=== PATIENT | female | born 1970 | race Two or more races ===

== ENCOUNTER 2017-04-20 20:13 | Inpatient (IN) | END 2017-04-26 19:30 | disposition home or self-care (01) | DRG 419 ==

== ENCOUNTER 2018-09-08 03:25 | Inpatient (IN) | payer OTHER, MEDICAID ==
[~2018-09-08] VITALS: Ht 162.6 cm; Wt 68.2 kg
[~2018-09-08 03:25] MED LIST: ACYC400T2 PO; DOXY100T20 PO; HYDR-3601 PO; IBUP-1542 PO; MUPI22OI2 TOP; ONDA4TAB8 PO; RIFA300C3 PO
[2018-09-08 03:35] VITALS: Ht 162.6 cm; Wt 68.2 kg
[2018-09-08] MEDS ORDERED: PIPER-TAZO 3.375 GM IV (PMX) 100 ML IVPB STA (03:37)
[2018-09-08] MEDS ORDERED: SOD CHLORIDE 0.9% 1,000 ML IV STA (03:37)
[2018-09-08] MEDS ORDERED: ONDANSETRON 4 MG INJ IV STA (03:37)
[2018-09-08] MEDS ORDERED: HYDROmorphONE 1 MG/ML SYG IV STA (03:37)
--- NOTE | 2018-09-08 05:39 | ERD ---
ER Documentation Chief Complaint Chief Complaint BIB AMBULANCE C/O R SIDE BREAST PAIN SECONDARY TO CANCER HPI Is a 48 female brought in by mom's complaints erythema and induration on the right flank region from an insect bite. Patient is a breast cancer patient currently on chemo. Complains of body aches as well. Denies fevers chills nausea vomiting. Pain is mild to moderate intensity no exacerbating relieving factors no radiations. ROS All systems reviewed and are negative except as per history of present illness. Medications Home Meds Active Scripts Acyclovir* (Acyclovir*) 400 Mg Tablet, 400 MG PO BID, #14 TAB Prov:ZAHIRA OLEARY MD 04/26/17 Reported Medications Ibuprofen* (Ibuprofen*) 600 Mg Tablet, 600 MG PO TID TAKE 1 TABLET BY MOUTH THREE TIMES A DAY WITH FOOD 09/08/18 Discontinued Scripts Ondansetron Hcl* (Zofran*) 4 Mg Tablet, 4 MG PO Q6H PRN for NAUSEA AND OR VOMITING, #30 TAB Prov:ZAHIRA OLEARY MD 04/26/17 Hydrocodone Bit-Acetaminophen (Hydrocodone Bit-APAP) 5-325MG Tablet, 1 TAB PO Q4H PRN for PAIN LEVEL 6-10, #30 TAB Prov:ZAHIRA OLEARY MD 04/26/17 Allergies Allergies: Coded Allergies: camphor (Unverified Allergy, Unknown, 09/08/18) eucalyptus (Unverified Allergy, Unknown, 09/08/18) menthol (Unverified Allergy, Unknown, 09/08/18) petrolatum,white (Unverified Allergy, Unknown, 09/08/18) turpentine oil (Unverified Allergy, Unknown, 09/08/18) venlafaxine (Unverified Allergy, Unknown, 09/08/18) PMhx/Soc History of Surgery: No Anesthesia Reaction: No Hx Neurological Disorder: No Hx Respiratory Disorders: No Hx Cardiac Disorders: No Hx Psychiatric Problems: Yes (ANXIETY DEPRESSION TAKES NO MEDS) Hx Miscellaneous Medical Probl: Yes (HX SHINGLES) Hx Alcohol Use: Yes (OCCASIONAL) Hx Substance Use: No Hx Tobacco Use: Yes Smoking Status: Never smoker Physical Exam Vitals Vital Signs Date Temp Pulse Resp B/P (MAP) Pulse Ox O2 O2 Flow FiO2 Time Delivery Rate 09/08/18 55 14 130/92 99 Room Air 05:09 (105) 09/08/18 97.9 65 22 147/76 98 03:35 (99) Physical Exam Const: No acute distress Head: Atraumatic Eyes: Normal Conjunctiva ENT: Normal External Ears, Nose and Mouth. Neck: Full range of motion. No meningismus. Resp: Clear to auscultation bilaterally Cardio: Regular rate and rhythm, no murmurs Abd: Soft, non tender, non distended. Normal bowel sounds Skin: 4 x 4 area of erythema is duration the right midaxillary line at ribs 4 and 5. No fluctuance noted. Back: No midline or flank tenderness Ext: No cyanosis, or edema Neur: Awake and alert Psych: Normal Mood and Affect Result Diagram: 09/08/182 09/08/18 0352 Results 24 hrs Laboratory Tests Test 09/08/18 03:52 White Blood Count 11.4 10^3/ul Red Blood Count 3.99 10^6/ul Hemoglobin 12.3 g/dl Hematocrit 38.0 % Mean Corpuscular Volume 95.2 fl Mean Corpuscular Hemoglobin 30.8 pg Mean Corpuscular Hemoglobin Concent 32.4 g/dl Red Cell Distribution Width 16.3 % Platelet Count 336 10^3/UL Mean Platelet Volume 10.3 fl Immature Granulocytes % 0.500 % Neutrophils % 77.8 % Lymphocytes % 14.6 % Monocytes % 6.0 % Eosinophils % 0.8 % Basophils % 0.3 % Nucleated Red Blood Cells % 0.0 /100WBC Immature Granulocytes # 0.060 10^3/ul Neutrophils # 8.9 10^3/ul Lymphocytes # 1.7 10^3/ul Monocytes # 0.7 10^3/ul Eosinophils # 0.1 10^3/ul Basophils # 0.0 10^3/ul Nucleated Red Blood Cells # 0.0 10^3/ul Sodium Level 140 mmol/L Potassium Level 4.1 mmol/L Chloride Level 109 mmol/L Carbon Dioxide Level 23 mmol/L Anion Gap 8 Blood Urea Nitrogen 14 mg/dl Creatinine 0.89 mg/dl Est Glomerular Filtrat Rate mL/min > 60 mL/min Glucose Level 105 mg/dl Calcium Level 9.6 mg/dl Total Bilirubin 0.3 mg/dl Direct Bilirubin 0.00 mg/dl Indirect Bilirubin 0.3 mg/dl Aspartate Amino Transf (AST/SGOT) 21 IU/L Alanine Aminotransferase (ALT/SGPT) 14 IU/L Alkaline Phosphatase 58 IU/L Total Protein 7.3 g/dl Albumin 3.8 g/dl Globulin 3.50 g/dl Albumin/Globulin Ratio 1.08 Lipase 131 U/L Current Medications Medications Dose Sig/[place]ton Start Time Status Last (Trade) Ordered Route PRN Stop Time Admin Dose Reason Admin Sodium 1,000 ml @ Q1H STAT 09/08/18 DC 09/08/18 Chloride 1,000 mls/hr IV 03:37 03:59 09/08/18 04:36 1 mg ONCE STAT 09/08/18 DC 09/08/18 Hydromorphone IV 03:37 03:59 HCl 09/08/18 03:52 (Dilaudid) Ondansetron 4 mg ONCE STAT 09/08/18 DC 09/08/18 HCl (Zofran IV 03:37 03:59 Inj) 09/08/18 03:52 Piperacillin 100 ml @ ONCE STAT 09/08/18 DC 09/08/18 Sod/ 200 mls/hr IVPB 03:37 04:00 Tazobactam 09/08/18 04:06 Sod Ondansetron 4 mg BRIDGE ORDER 09/08/18 HCl (Zofran PRN IV 06:00 09/09/18 Inj) NAUSEA/VOMITI 05:59 NG 650 mg ER BRIDGE 09/08/18 Acetaminophen PRN PO 06:00 09/09/18 (Tylenol .MILD PAIN 05:59 Tab) 1-3 OR TEMP Procedures/MDM Medical decision making: Is a 48-year female with cellulitis likely from insect bite. Start on antibiotics post cultures. Patient will be admitted to hospitalist for further evaluation and management. Departure Diagnosis: Primary Impression: Pain Additional Impression: Cellulitis Site of cellulitis: unspecified site Qualified Codes: L03.90 - Cellulitis, unspecified Condition: Stable POLI GARCIA Sep 08, 2018 05:39
[2018-09-08] MEDS ORDERED: ACETAMINOPHEN 325 MG TAB PO PRN ×2 (06:00→07:30)
[2018-09-08] MEDS ORDERED: ONDANSETRON 4 MG INJ IV PRN ×2 (06:00→07:30)
[2018-09-08 07:30] VITALS: BP 114/92; PULSE 60; RESP 18
[2018-09-08] MEDS ORDERED: NACL 0.9% 3 ML SYG IV SCH (07:30)
[2018-09-08] MEDS ORDERED: HYDROCODONE/APAP (5/325) TAB PO PRN ×2 (07:30)
--- NOTE | 2018-09-08 08:58 | HP ---
Date/Time of Note Date/Time of Note DATE: 09/08/18 TIME: 08:56 Assessment/Plan VTE Prophylaxis SCD applied (from Nsg): Yes Pharmacological prophylaxis: NA/contraindicated Pharm contraindication: other (Patient may need an I&D) Lines/Catheters IV Catheter Type (from Nrsg): Saline Lock Assessment/Plan Assessment/Plan 1. Right upper back/right lateral chest abscess -Obtain imaging for further evaluation -IV antibiotic -ID consult -May need General surgery consult for I&D -Patient does have a history of shingles, I doubt that this is a reason from that 2. Right breast cancer on chemo -Patient thinks her right breast has been progressively getting bigger and is also painful -No erythema or sign of infection -Obtain imaging -Oncology consult 3. Anxiety/depression: Continue appropriate meds as needed Result Diagram: 09/08/18 0352 09/08/18 0352 Results 24hrs Laboratory Tests Test 09/08/18 03:52 White Blood Count 11.4 #H Red Blood Count 3.99 #L Hemoglobin 12.3 # Hematocrit 38.0 # Mean Corpuscular Volume 95.2 Mean Corpuscular Hemoglobin 30.8 Mean Corpuscular Hemoglobin Concent 32.4 Red Cell Distribution Width 16.3 H Platelet Count 336 Mean Platelet Volume 10.3 Immature Granulocytes % 0.500 H Neutrophils % 77.8 H Lymphocytes % 14.6 L Monocytes % 6.0 Eosinophils % 0.8 Basophils % 0.3 Nucleated Red Blood Cells % 0.0 Immature Granulocytes # 0.060 H Neutrophils # 8.9 H Lymphocytes # 1.7 Monocytes # 0.7 Eosinophils # 0.1 Basophils # 0.0 Nucleated Red Blood Cells # 0.0 Sodium Level 140 Potassium Level 4.1 Chloride Level 109 Carbon Dioxide Level 23 Anion Gap 8 Blood Urea Nitrogen 14 Creatinine 0.89 Est Glomerular Filtrat Rate mL/min > 60 Glucose Level 105 Calcium Level 9.6 Total Bilirubin 0.3 Direct Bilirubin 0.00 Indirect Bilirubin 0.3 Aspartate Amino Transf (AST/SGOT) 21 Alanine Aminotransferase (ALT/SGPT) 14 Alkaline Phosphatase 58 Total Protein 7.3 Albumin 3.8 Globulin 3.50 H Albumin/Globulin Ratio 1.08 Lipase 131 HPI/ROS Admit Date/Time Admit Date/Time Sep 08, 2018 at 05:35 Hx of Present Illness Patient is a 48-year-old female with a history of right breast cancer on chemo, anxiety/depression, shingles who presented to the ER complaining of infection and pain in the area of right upper back/right lateral chest. She also complained of right breast pain. She also thinks that her right breast has been getting bigger. Patient thinks she may have been bitten by an insect and now there is what appears to be an abscess in the area of right upper back/right lateral chest. When she presented to ER, vitals were stable. WBC 11.4 otherwise basic labs within acceptable range. No imaging was done in the ER. PMH/Family/Social Past Medical History Medical History: other (See HPI) Medications Current Medications Ondansetron HCl (Zofran Inj) 4 mg BRIDGE ORDER PRN IV NAUSEA/VOMITING; Start 09/08/18 at 06:00; Stop 09/09/18 at 05:59 Acetaminophen (Tylenol Tab) 650 mg ER BRIDGE PRN PO .MILD PAIN 1-3 OR TEMP; Start 09/08/18 at 06:00; Stop 09/09/18 at 05:59 IV Flush (NS 3 ml) 3 ml PER PROTOCOL IV ; Start 09/08/18 at 07:30 Ondansetron HCl (Zofran Inj) 4 mg Q6H PRN IV NAUSEA/VOMITING; Start 09/08/18 at 07:30 Acetaminophen (Tylenol Tab) 650 mg Q6H PRN PO .PAIN 1-3 OR TEMP; Start 09/08/18 at 07:30 Acetaminophen/ Hydrocodone Bitart (Irene (5/325)) 1 tab Q6H PRN PO .MOD PAIN 4- 6; Start 09/08/18 at 07:30 Acetaminophen/ Hydrocodone Bitart (Irene (5/325)) 2 tab Q6H PRN PO .SEVERE PAIN 7-10; Start 09/08/18 at 07:30 Heparin Sodium (Porcine) (Heparin (5000 Units/1ml)) 5,000 unit Q12 SC ; Start 09/08/18 at 09:00 Vancomycin HCl (Vanco Iv Per Pharmacy) VANCOMYCIN PER PHARMACY PER PROTOCOL XX ; Start 09/09/18 at 09:00 Cefepime HCl 50 ml @ 100 mls/hr Q12H IVPB ; Start 09/08/18 at 21:00 Vancomycin/Sodium Chloride 250 ml @ 83.333 mls/ hr ONCE ONCE IVPB ; Start 09/08/18 at 09:00; Stop 09/08/18 at 11:59 Vancomycin/Sodium Chloride 250 ml @ 125 mls/hr Q12H IVPB ; Start 09/08/18 at 21:30 Miscellaneous Information (*Rx Drug Level Order Reminder*) VANCO TR LEVEL ON 09/09 @ 2,030 ONCE ONCE XX ; Start 09/09/18 at 20:30; Stop 09/09/18 at 20:31 Coded Allergies: camphor (Unverified Allergy, Unknown, 09/08/18) eucalyptus (Unverified Allergy, Unknown, 09/08/18) menthol (Unverified Allergy, Unknown, 09/08/18) petrolatum,white (Unverified Allergy, Unknown, 09/08/18) turpentine oil (Unverified Allergy, Unknown, 09/08/18) venlafaxine (Unverified Allergy, Unknown, 09/08/18) Past Surgical History Past Surgical Hx: other (See HPI) Family History Significant Family History: no pertinent family hx Social History Alcohol Use: none Smoking Status: Never smoker Drug Use: none Exam/Review of Systems Vital Signs Vitals Vital Signs Date Temp Pulse Resp B/P (MAP) Pulse Ox O2 O2 Flow FiO2 Time Delivery Rate 09/08/18 98.3 60 16 134/87 99 Room Air 07:28 (103) Exam Constitutional: distress Head: other (Bald head. No obvious deformity) Eyes: EOMI, PERRL Respiratory: clear to auscultation Cardiovascular: regular rate and rhythm, nl pulses Gastrointestinal: soft, non-tender Genitourinary - Female: other (In the right upper back/right lateral chest area, there is an erythematous tender area which appears to be filled with pus) Extremities: normal pulses POLI FIGUEROA MD Sep 08, 2018 08:58
[2018-09-08] MEDS ORDERED: VANCOMYCIN 1.25 GM IN 0.9 % SOD CHLORIDE 250 ML IVPB ONE (09:00)
[2018-09-08] MEDS: HYDROmorphONE 1 MG/ML SYG IV PRN ×4 (10:08→23:04)
[2018-09-08] MEDS: HEPARIN 5,000 UNIT/1 ML VIAL SC SCH ×2 (10:13→20:09)
--- NOTE | 2018-09-08 13:38 | QN ---
Documentation Comment Oncology Note dictated-- 48 y/o premenopausal female, [id number]. Has recent dx of carcinoma of the Rt breast. Dx made on needle bx of Rt axillary node. Bx was done 04/27 but pt doesn't know histology , hormone receptor status or HER-2 status. Has received on cycle of chemo ~ 1 month ago. States treatment was delayed because of infections (UTI and "shingles") and insurance. Pt states that since chemotherapy the Rt breast has increased in size. Has also recently developed Rt lateral, mid thoracic pain and swelling. Not clear if this is an insect bite or a herpetic lesion. This is a solitary lesion. It is likely that there has been an increase in Rt breast size due to delays in therapy. Will try to contact her oncologist and obtain details of tissue type and treatment. Thank You, Nydia Tineo MD. NYDIA ITNEO MD Sep 08, 2018 13:38
[2018-09-08 14:22] VITALS: BP 140/89; PULSE 53; RESP 18
--- NOTE | 2018-09-08 15:27 | QN ---
Documentation Comment This is a 48-year-old female with a history of right breast carcinoma, on chemotherapy, admitted with right lateral chest wall cellulitis with increasing right breast size... CT chest showed Infiltration of the subcutaneous soft tissues in the inferolateral chest wall at the level of the right seventh and eighth ribs suggestive of cellulitis. There is a 3 cm suspected right breast mass with right axillary lymphadenopathy measuring up to 2 cm. Will obtain a soft tissue ultrasound to rule out any underlying abscess. Wound is not draining. Continue compress. Continue antimicrobials with staph/MRSA coverage. Nasal swab also will be ordered. Infectious disease consultation will be requested. We will also request oncology consultation. Continue pain control. Obtain a drug toxicology. Case discussed with CATALINA Morgan NP Sep 08, 2018 15:27
--- NOTE | 2018-09-08 17:28 | CONS ---
DATE OF ADMISSION: 09/08/2018 DATE OF CONSULTATION: 09/08/2018 TYPE OF CONSULTATION: Medical oncology. REQUESTING PHYSICIAN: Gunnar Figueroa MD REASON FOR CONSULTATION: Carcinoma of the right breast. Dear Dr. Figueroa: Thank you very much for asking me to see this very pleasant patient in oncologic consultation. As you know, Ms. Julian is a 48-year-old female who has a history of breast carcinoma. The patient s tates she was originally found to have breast carcinoma in April of 2018. The diagnosis was made via needle biopsy of axillary lymphadenopathy. The patient unfortunately does not know any of the details regarding the malignancy. She does not kn ow the histology nor does she know the hormone receptor status or HER2/yao status. The patient did not receive chemotherapy until approximately 1 month ago. She states therapy was del ayed because she had various infections including urinary tract infections and "shingles." She did receive chemotherapy approximately 1 month ago, but does not know what agents she received. Her onco logist is apparently in [place]. The patient further states that there was a delay in receiving second course of chemotherapy again be cause of "infections." The patient states that since she has received chemotherapy she feels that the right breast has actua lly increased in size. There is some increased tenderness. It has not been red or warm to the touch . The patient is admitted at this time with complaints of a painful swelling in the upper right flank a klarissa. Patient's past history is negative except for the history of breast cancer and a previous laparoscopi c cholecystectomy. MEDICATIONS: Have included: 1. Ibuprofen 600 mg 3 times a day. 2. Ondansetron 4 mg every 4 hours p.r.n. 3. Hydrocodone with acetaminophen 5/325. ALLERGIES: THE PATIENT STATES SHE IS ALLERGIC TO VENLAFAXINE. SHE CANNOT DESCRIBE THE REACTION. The patient is premenopausal. She cannot tell me; however, when last menstrual period was. She is g ravida 4, para 2, AB 2. First was at 17 years of age which ended in spontaneous . The patient's first child was born when she was 18 years of age. She did not breast feed. The patient is not aware of any family history of breast carcinoma or other malignancy. The patient is unmarried. States she is homeless. She states she does not smoke or use alcohol. LABORATORY DATA: On admission, sodium 140, potassium 4.1, BUN 14, creatinine 0.89. Total bilirubin 0.3, direct bilirubin 0. ALT 14, AST 21, alkaline phosphatase 58, albumin 3.8. White count 11,400 with an absolute neutrophil count of 8900, hemoglobin 12.3, hematocrit 38.0, and p latelet count is 366,000. The patient has had a CT scan of the chest, which does demonstrate some infiltration of subcutaneous tissues and inferolateral right chest wall "suggestive of cellulitis" There is a suspected 3 cm righ t breast mass and axillary lymphadenopathy measuring up to 2 cm. There is a Port-A-Cath also in plac e in the left chest. PHYSICAL EXAMINATION: GENERAL: At this time reveals a well-developed, mildly obese female who is in some pain due to the l esion in the right flank area. VITAL SIGNS: Temperature 98.3, pulse 60 per minute and regular, respirations 16, blood pressure 134/ 87, pulse oximetry 99% on room air. SKIN: No ecchymosis, no petechiae or rashes. There are multiple tattoos. There is a markedly tende r area of erythema which is 5 x 3 cm in the upper right flank in the posterior axillary line. In the center of this area is a vesicular lesion with a necrotic center. HEENT: Normocephalic. No evidence of trauma. Pupils equal, round, react to light and accommodation . Sclerae nonicteric. Oral mucosa is moist without lesions. Tongue is well papillated. No gingiva l hyperplasia, no hypertrophy or Waldeyer's ring, no mucosal telangiectasias. The patient does have alopecia. NECK: Supple, no jugular venous distention or thyroid enlargement. No carotid bruits. CHEST: Clear to auscultation and percussion. No rhonchi, wheezes, rales or rubs. There is marked t enderness on the right lateral posterior chest wall where the above-mentioned lesion is noted. There is also a port in the left upper chest anteriorly. HEART: Regular sinus rhythm, no S3, S4 or murmurs. ABDOMEN: Obese, but soft. There are no masses or ascites. Bowel sounds are active. BREASTS: Left breast without mass, skin retraction, nipple inversion. Right breast is larger than t he left breast. There is diffuse fullness and firmness in the lateral aspect of the breast, particula rly in the upper outer quadrant. There is some skin retraction noted as well. No erythema or warmth to the touch. EXTREMITIES: Good range of motion. No clubbing or cyanosis. There is slight edema of the right arm as compared to the left. No palpable cords or Homans sign. NEUROLOGIC: Normal. NODES: There are tender nodes in the right axilla. DISCUSSION: This patient does have a biopsy proven invasive carcinoma of the breast. Unfortunately, the patient is unaware of the tissue type, the hormone receptor status or other HER2/yao status. The patient's therapy has been significantly delayed since the time of diagnosis and she has only rec eived one course of therapy, which was, she states, 1 month ago. Unfortunately, she does not know wh at medications she has received. The patient feels that the breast has grown in size and I certainly feel this is not unlikely given t he delay in therapy. Right now, at the present time, the patient's greatest complaint is of this painful lesion in the ri ght flank. It is unclear whether this is an insect bite or a herpetic lesion. She had been taking A cyclovir 400 mg twice a day. At this time, I will obtain a CEA and CA 27.29. We will try and contact her oncologist to determine the details regarding the breast biopsy as well a s therapy which the patient has received Once again, thank you very much for the opportunity of participating in the medical care of this very pleasant patient. I will be happy to follow this patient with you and assist in her oncologic evalu ation and follow up as necessary. Dictated By: NYDIA DUNCAN MD SR/NTS Conf#: [id number] DID#: [id number] CC: GUNNAR FIGUEROA MD;*EndCC*
[2018-09-08 19:44] VITALS: BP 154/15; PULSE 68; RESP 18
[2018-09-08] MEDS: CEFEPIME 1GM/50 ML (PMX) 50 ML IVPB SCH (20:06)
[2018-09-08] MEDS: VANCOMYCIN 750 MG (PMX) 250 ML IVPB SCH (21:36)
[2018-09-09 01:36] VITALS: BP 135/90; PULSE 64; RESP 17
--- NOTE | 2018-09-09 01:46 | CONS ---
DATE OF ADMISSION: 09/08/2018 DATE OF CONSULTATION: 09/08/2018 TYPE OF CONSULTATION: Infectious Disease. REASON FOR CONSULTATION: Antibiotic management. HISTORY OF PRESENT ILLNESS: Anat Julian is a 48-year-old female who was admitted through the emerg ency room today, brought in by ambulance complaining of right-sided breast pain secondary to cancer. She is a 48-year-old female. She has erythema and induration on the right flank from an insect bite , presumably. Patient has breast cancer. The patient on chemotherapy. She complains of body aches. She denies fever, chills, nausea or vomiting. Pain is mild to moderate intensity, no exacerbating or relieving factors and no radiation. PAST MEDICAL HISTORY: Noncontributory. Additional past medical history includes anxiety and depress ion, on no meds. She has a history of shingles. FAMILY HISTORY: Noncontributory. SOCIAL HISTORY: She does not smoke. She drinks occasionally. She does not abuse drugs. ALLERGIES: CAMPHOR, EUCALYPTUS, MENTHOL, ____, TURPENTINE OIL, VENLAFAXINE. MEDICATIONS: Per chart reviewed. REVIEW OF SYSTEMS: Noncontributory. PHYSICAL EXAMINATION: GENERAL: The patient is in no acute distress. VITAL SIGNS: Stable. She is afebrile. SKIN: Without generalized rash. HEENT: Within normal limits. NECK: Supple. LYMPH NODES: None palpable. CHEST: Decreased breath sounds at the bases. HEART: Without murmur or gallop. ABDOMEN: She has a 4 x 4 area of erythema and induration in the right mid axillary line at ribs 4 an d 5. No fluctuance is noted. EXTREMITIES: Without cyanosis, clubbing, or edema. RECTAL AND GENITAL: Deferred. NEUROLOGIC: No focal neurological abnormality. LABORATORY DATA: On admission, her white count was 11.4 with 78 ____, H and H of 12.3 and 38, platel et count 336,000. BUN and creatinine 14/0.89. HOSPITAL COURSE: The patient was started on Zosyn. She was admitted for cellulitis. She was seen b tian Tineo, who noted that she is a premenopausal female 48, G4, para 2, AB 2. She has recent di agnosis of carcinoma of the right breast, a diagnosis made on the needle biopsy of the right axillary node. She received 1 cycle of chemotherapy. She had a history of shingles and a UTI and that delay ed further treatment. She says the right breast has increased in size since the chemotherapy. She h as developed right lateral mid thoracic pain and swelling. It is a solitary lesion that she has. We will try to contact her oncologist and obtain details of tissue type and treatment. The patient see n by ____, admitted with left chest wall cellulitis, increasing right breast size. CT chest show s infiltration of subcutaneous soft tissues in the inferolateral chest wall at the level of the right 7th and 8th ribs suggestive of cellulitis. There is a 3 cm infected right breast mass with right ax illary lymphadenopathy measuring up to 2 cm. A soft tissue ultrasound was ordered to rule out underl brittney abscess. Wound is not draining. Continue compresses, antimicrobials should be with Staphylococ cus MRSA coverage. Nasal swab ordered and infectious disease consultation also requested. The patient currently is on vancomycin and cefepime to which I concur. I will dictate my findings to the hospitalist and to Dr. Tineo. Dictated By: BACILIO MONTANA MD, JD/JL Conf#: [id number] DID#: [id number] CC: NYDIA TINEO MD;*End*
[2018-09-09] MEDS: HYDROmorphONE 1 MG/ML SYG IV PRN ×7 (03:07→23:10)
[2018-09-09 08:00] VITALS: BP 117/76; PULSE 77; RESP 20
[2018-09-09] MEDS ORDERED: VANCOMYCIN IV PER PHARMACY XX SCH (09:00)
[2018-09-09] MEDS: CEFEPIME 1GM/50 ML (PMX) 50 ML IVPB SCH ×2 (09:16→21:04)
[2018-09-09] MEDS: HEPARIN 5,000 UNIT/1 ML VIAL SC SCH (09:17)
[2018-09-09] MEDS: VANCOMYCIN 750 MG (PMX) 250 ML IVPB SCH ×2 (10:31→22:15)
--- NOTE | 2018-09-09 13:59 | PN ---
Date/Time of Note Date/Time of Note DATE: 09/09/18 TIME: 13:59 Assessment/Plan VTE Prophylaxis Risk score (from Ns)>0 risk: 2 [place] [facility] [place]CD contraindicated: other Pharmacological prophylaxis: NA/contraindicated Pharm contraindication: low risk/ambulating Lines/Catheters IV Catheter Type (from [facility]): Saline Lock Assessment/Plan Hospital Course SUBJECTIVE: Lying in bed, having pain on right lateral chest wall cellulitis area, which is now draining purulent. OBJECTIVE: Vital signs-see below PHYSICAL EXAM: Constitutional: Adequately built,not in acute distress. HEENT: Head atraumatic and normocephalic. Eyes: Extraocular muscles intact. Ani cteric sclerae. Pupils equal bilaterally, reactive to light. NECK: Supple without lymph node. CHEST: Clear and good breath sounds equally. No wheezing. No rhonchi. HEART: S1, S2. Regular rate and rhythm. ABDOMEN: Soft/non tender with no rebound tenderness. Bowel sounds were present. EXTREMITIES: No cyanosis, clubbing or edema. NEUROLOGIC: Alert and oriented x3. No focal deficit. No sensory deficit. PSYCHOSOCIAL: No signs of depression. INTEGUMENTARY: Induration/erythema/draining pus from right lateral chest wall cellulitis. ASSESSMENT AND PLAN:48-year-old female with a history of right breast carcinoma, on chemotherapy, admitted with right lateral chest wall cellulitis with increasing right breast size... Right lateral chest wall cellulitis -No evidence of abscess. -Wound now open and draining. -Warm compress 3 times daily to help drain pus, continue antimicrobials and pain control -Cultures growing staph, patient on appropriate antimicrobials-likely cefepime can be discontinued soon. 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 Wound started Draining, continue current management and await for final cultures. Patient was seen in collaboration with Dr. Fountain Result Diagram: 09/09/18 0459 09/09/18 0459 Results 24hrs Laboratory Tests Test 09/08/18 22:40 09/09/18 04:59 Urine Color YELLOW Urine Clarity CLEAR Urine pH 5.0 Urine Specific [place] 1.017 Urine Ketones NEGATIVE Urine Nitrite NEGATIVE Urine Bilirubin NEGATIVE Urine Urobilinogen NEGATIVE Urine Leukocyte Esterase NEGATIVE Urine Hemoglobin NEGATIVE Urine Glucose NEGATIVE Urine Total Protein NEGATIVE Urine Opiates Screen Positive Urine Barbiturates Negative Urine Amphetamines Screen POSITIVE Urine Benzodiazepines Screen Negative Urine Cocaine Screen Negative Urine Cannabinoids Negative White Blood Count 10.4 Red Blood Count 3.65 L Hemoglobin 11.1 L Hematocrit 35.5 L Mean Corpuscular Volume 97.3 Mean Corpuscular Hemoglobin 30.4 Mean Corpuscular Hemoglobin Concent 31.3 L Red Cell Distribution Width 16.3 H Platelet Count 336 Mean Platelet Volume 10.1 Immature Granulocytes % 0.400 Neutrophils % 77.4 H Lymphocytes % 14.6 L Monocytes % 6.4 Eosinophils % 0.8 Basophils % 0.4 Nucleated Red Blood Cells % 0.0 Immature Granulocytes # 0.040 H Neutrophils # 8.1 H Lymphocytes # 1.5 Monocytes # 0.7 Eosinophils # 0.1 Basophils # 0.0 Nucleated Red Blood Cells # 0.0 Sodium Level 137 Potassium Level 4.0 Chloride Level 104 Carbon Dioxide Level 26 Anion Gap 7 Blood Urea Nitrogen 10 Creatinine 0.68 Est Glomerular Filtrat Rate mL/min > 60 Glucose Level 116 Calcium Level 9.2 Phosphorus Level 3.9 Magnesium Level 1.7 Total Bilirubin 0.3 Direct Bilirubin 0.00 Indirect Bilirubin 0.3 Aspartate Amino Transf (AST/SGOT) 29 Alanine Aminotransferase (ALT/SGPT) 16 Alkaline Phosphatase 60 Total Protein 6.2 # Albumin 3.3 Globulin 2.90 Albumin/Globulin Ratio 1.13 Exam/Review of Systems Exam Vitals Vital Signs Date Temp Pulse Resp B/P (MAP) Pulse Ox O2 O2 Flow FiO2 Time Delivery Rate 09/09/18 98.5 77 20 117/76 96 08:00 (90) 09/08/18 Room Air 07:28 Intake and Output 09/08/18 09/08/18 09/09/18 1515:00 23:00 07:00 IntakeIntake Total 360 ml 410 ml 250 ml BalanceBalance 360 ml 410 ml 250 ml Results Results 24hrs Laboratory Tests Test 09/08/18 22:40 09/09/18 04:59 Urine Color YELLOW Urine Clarity CLEAR Urine pH 5.0 Urine Specific [place] 1.017 Urine Ketones NEGATIVE Urine Nitrite NEGATIVE Urine Bilirubin NEGATIVE Urine Urobilinogen NEGATIVE Urine Leukocyte Esterase NEGATIVE Urine Hemoglobin NEGATIVE Urine Glucose NEGATIVE Urine Total Protein NEGATIVE Urine Opiates Screen Positive Urine Barbiturates Negative Urine Amphetamines Screen POSITIVE Urine Benzodiazepines Screen Negative Urine Cocaine Screen Negative Urine Cannabinoids Negative White Blood Count 10.4 Red Blood Count 3.65 L Hemoglobin 11.1 L Hematocrit 35.5 L Mean Corpuscular Volume 97.3 Mean Corpuscular Hemoglobin 30.4 Mean Corpuscular Hemoglobin Concent 31.3 L Red Cell Distribution Width 16.3 H Platelet Count 336 Mean Platelet Volume 10.1 Immature Granulocytes % 0.400 Neutrophils % 77.4 H Lymphocytes % 14.6 L Monocytes % 6.4 Eosinophils % 0.8 Basophils % 0.4 Nucleated Red Blood Cells % 0.0 Immature Granulocytes # 0.040 H Neutrophils # 8.1 H Lymphocytes # 1.5 Monocytes # 0.7 Eosinophils # 0.1 Basophils # 0.0 Nucleated Red Blood Cells # 0.0 Sodium Level 137 Potassium Level 4.0 Chloride Level 104 Carbon Dioxide Level 26 Anion Gap 7 Blood Urea Nitrogen 10 Creatinine 0.68 Est Glomerular Filtrat Rate mL/min > 60 Glucose Level 116 Calcium Level 9.2 Phosphorus Level 3.9 Magnesium Level 1.7 Total Bilirubin 0.3 Direct Bilirubin 0.00 Indirect Bilirubin 0.3 Aspartate Amino Transf (AST/SGOT) 29 Alanine Aminotransferase (ALT/SGPT) 16 Alkaline Phosphatase 60 Total Protein 6.2 # Albumin 3.3 Globulin 2.90 Albumin/Globulin Ratio 1.13 Medications Medication Current Medications IV Flush (NS 3 ml) 3 ml PER PROTOCOL IV ; Start 09/08/18 at 07:30 Ondansetron HCl (Zofran Inj) 4 mg Q6H PRN IV NAUSEA/VOMITING; Start 09/08/18 at 07:30 Acetaminophen (Tylenol Tab) 650 mg Q6H PRN PO .PAIN 1-3 OR TEMP; Start 09/08/18 at 07:30 Acetaminophen/ Hydrocodone Bitart ([place] (5/325)) 1 tab Q6H PRN PO .MOD PAIN 4- 6; Start 09/08/18 at 07:30 Acetaminophen/ Hydrocodone Bitart ([place] (5/325)) 2 tab Q6H PRN PO .SEVERE PAIN 7-10; Start 09/08/18 at 07:30 Heparin Sodium (Porcine) (Heparin (5000 Units/1ml)) 5,000 unit Q12 SC Last administered on 09/09/18at 09:17; Admin Dose 5,000 UNIT; Start 09/08/18 at 09:00 Vancomycin HCl (Vanco Iv Per Pharmacy) VANCOMYCIN PER PHARMACY PER PROTOCOL XX ; Start 09/09/18 at 09:00 Cefepime HCl 50 ml @ 100 mls/hr Q12H IVPB Last administered on 09/09/18at 09:16; Admin Dose 100 MLS/HR; Start 09/08/18 at 21:00 Vancomycin/Sodium Chloride 250 ml @ 125 mls/hr Q12H IVPB Last administered on 09/09/18at 10:31; Admin Dose 125 MLS/HR; Start 09/08/18 at 21:30 Miscellaneous Information (*Rx Drug Level Order Reminder*) VANCO TR LEVEL ON 09/09 @ 2,030 ONCE ONCE XX ; Start 09/09/18 at 20:30; Stop 09/09/18 at 20:31 Hydromorphone HCl (Dilaudid) 1 mg Q3H PRN IV SEVERE PAIN LEVEL 7-10 Last administered on 09/09/18at 09:18; Admin Dose 1 MG; Start 09/08/18 at 09:00 CATALINA MARTE NP Sep 09, 2018 13:59
[2018-09-09 14:00] VITALS: BP 118/76; PULSE 63; RESP 18
[2018-09-09] MEDS ORDERED: ALPRAZOLAM 0.5 MG TAB PO PRN (14:00)
--- NOTE | 2018-09-09 15:06 | CONS ---
Assessment/Plan Assessment/Plan Hospital Course (Demo Recall) Patient is sleeping, arousable in no distress and afebrile WBC 10.4 neutrophils 77.4 BUN 10 creatinine 0.68 Microbiology blood cultures negative the culture from the back wound growing staph aureus Physical examination well-developed ill-appearing middle-aged woman who is in no distress. Head atraumatic normocephalic neck is supple chest rise symmetrical breath sounds diminished bases heart S1-S2 abdomen soft bowel sounds present extremities without cyanosis Assessment: 1. Right chest wall cellulitis 2. Carcinoma of the breast 3. History of methamphetamine abuse 4. Left chest Port-A-Cath Plan: Patient is stable, she is on IV Vanco and cefepime, oncology on case will await for final cultures Consultation Date/Type/Reason Admit Date/Time Sep 08, 2018 at 05:35 Initial Consult Date Type of Consult id Date/Time of Note DATE: 09/09/18 TIME: 15:05 Exam/Review of Systems Exam Vitals Vital Signs Date Temp Pulse Resp B/P (MAP) Pulse Ox O2 O2 Flow FiO2 Time Delivery Rate 09/09/18 98.5 77 20 117/76 96 08:00 (90) 09/08/18 Room Air 07:28 Intake and Output 09/08/18 09/08/18 09/09/18 1515:00 23:00 07:00 IntakeIntake Total 360 ml 410 ml 250 ml BalanceBalance 360 ml 410 ml 250 ml Results Result Diagram: 09/09/18 0459 09/09/18 0459 Results 24hrs Laboratory Tests Test 09/08/18 22:40 09/09/18 04:59 Urine Color YELLOW Urine Clarity CLEAR Urine pH 5.0 Urine Specific [place] 1.017 Urine Ketones NEGATIVE Urine Nitrite NEGATIVE Urine Bilirubin NEGATIVE Urine Urobilinogen NEGATIVE Urine Leukocyte Esterase NEGATIVE Urine Hemoglobin NEGATIVE Urine Glucose NEGATIVE Urine Total Protein NEGATIVE Urine Opiates Screen Positive Urine Barbiturates Negative Urine Amphetamines Screen POSITIVE Urine Benzodiazepines Screen Negative Urine Cocaine Screen Negative Urine Cannabinoids Negative White Blood Count 10.4 Red Blood Count 3.65 L Hemoglobin 11.1 L Hematocrit 35.5 L Mean Corpuscular Volume 97.3 Mean Corpuscular Hemoglobin 30.4 Mean Corpuscular Hemoglobin Concent 31.3 L Red Cell Distribution Width 16.3 H Platelet Count 336 Mean Platelet Volume 10.1 Immature Granulocytes % 0.400 Neutrophils % 77.4 H Lymphocytes % 14.6 L Monocytes % 6.4 Eosinophils % 0.8 Basophils % 0.4 Nucleated Red Blood Cells % 0.0 Immature Granulocytes # 0.040 H Neutrophils # 8.1 H Lymphocytes # 1.5 Monocytes # 0.7 Eosinophils # 0.1 Basophils # 0.0 Nucleated Red Blood Cells # 0.0 Sodium Level 137 Potassium Level 4.0 Chloride Level 104 Carbon Dioxide Level 26 Anion Gap 7 Blood Urea Nitrogen 10 Creatinine 0.68 Est Glomerular Filtrat Rate mL/min > 60 Glucose Level 116 Calcium Level 9.2 Phosphorus Level 3.9 Magnesium Level 1.7 Total Bilirubin 0.3 Direct Bilirubin 0.00 Indirect Bilirubin 0.3 Aspartate Amino Transf (AST/SGOT) 29 Alanine Aminotransferase (ALT/SGPT) 16 Alkaline Phosphatase 60 Total Protein 6.2 # Albumin 3.3 Globulin 2.90 Albumin/Globulin Ratio 1.13 Medications Medication Current Medications IV Flush (NS 3 ml) 3 ml PER PROTOCOL IV ; Start 09/08/18 at 07:30 Ondansetron HCl (Zofran Inj) 4 mg Q6H PRN IV NAUSEA/VOMITING; Start 09/08/18 at 07:30 Acetaminophen (Tylenol Tab) 650 mg Q6H PRN PO .PAIN 1-3 OR TEMP; Start 09/08/18 at 07:30 Acetaminophen/ Hydrocodone Bitart ([place] (5/325)) 1 tab Q6H PRN PO .MOD PAIN 4- 6; Start 09/08/18 at 07:30 Acetaminophen/ Hydrocodone Bitart ([place] (5/325)) 2 tab Q6H PRN PO .SEVERE PAIN 7-10; Start 09/08/18 at 07:30 Vancomycin HCl (Vanco Iv Per Pharmacy) VANCOMYCIN PER PHARMACY PER PROTOCOL XX ; Start 09/09/18 at 09:00 Cefepime HCl 50 ml @ 100 mls/hr Q12H IVPB Last administered on 09/09/18at 09:16; Admin Dose 100 MLS/HR; Start 09/08/18 at 21:00 Vancomycin/Sodium Chloride 250 ml @ 125 mls/hr Q12H IVPB Last administered on 09/09/18at 10:31; Admin Dose 125 MLS/HR; Start 09/08/18 at 21:30 Miscellaneous Information (*Rx Drug Level Order Reminder*) VANCO TR LEVEL ON 09/09 @ 2,030 ONCE ONCE XX ; Start 09/09/18 at 20:30; Stop 09/09/18 at 20:31 Hydromorphone HCl (Dilaudid) 1 mg Q3H PRN IV SEVERE PAIN LEVEL 7-10 Last administered on 09/09/18at 09:18; Admin Dose 1 MG; Start 09/08/18 at 09:00 Mupirocin (Bactroban) 1 applic BID TOP ; Start 09/09/18 at 21:00 Alprazolam (Xanax) 0.5 mg Q12H PRN PO ANXIETY; Start 09/09/18 at 14:00 JORGE TEMPLE NP Sep 09, 2018 15:06
[2018-09-09 20:00] VITALS: BP 132/78; PULSE 71; RESP 18
--- NOTE | 2018-09-09 20:58 | PN ---
DATE: 09/09/2018 MEDICAL ONCOLOGY PROGRESS NOTE SUBJECTIVE: The patient states that she has had some decrease in pain in the right flank area after the lesion has drained purulent material. Pain, however, is still significant. OBJECTIVE: GENERAL: The patient is a well-developed, well-nourished female in no acute distress. VITAL SIGNS: Temperature 98.4 orally, pulse 63 per minute and regular, respirations 18, blood pressu re 118/76 and pulse oximetry 97% on room air. SKIN: No ecchymosis, no petechiae or rashes. The previously noted right flank lesion is covered wit h a surgical dressing. There are scattered tattoos. HEENT: Normocephalic. No evidence of trauma. Pupils equal, round, reactive to light and accommodat ion. Sclerae nonicteric. Oral mucosa is moist without lesions. Tongue is well papillated. The pat ient has alopecia. NECK: Supple. No jugular venous distention or thyroid enlargement. CHEST: Clear to auscultation and percussion. No rhonchi, wheezes, rales or rubs. The right breast is enlarged and firm with a mass involving the entire lateral aspect of the breast. It is slightly w arm to the touch. HEART: Regular sinus rhythm, no S3, S4 or murmurs. CHEST: There is a Port-A-Cath in place in the left anterior chest wall. ABDOMEN: Obese without masses or ascites. EXTREMITIES: No clubbing. No edema or cyanosis. No palpable cords or Homans sign. NEUROLOGIC: Normal. LABORATORY DATA: White count 10,400 and absolute neutrophil count of 8100, hemoglobin 11.1, hematocr it 35.5 and platelet count 336,000. CEA is 4, CA 27.29 is 82. A toxicology screen done on admission is positive for opiates and urine positive for amphetamines. ASSESSMENT: 1. Locally advanced breast carcinoma. 2. Left chest wall abscess. DISCUSSION: I have tried to contact the patient's oncologist, Dr. Maher in [place]. Was able to con tact the office, but never actually spoke with the physician. We will try this again tomorrow to try to verify the patient's histology and treatment plan. Dictated By: NYDIA DUNCAN MD SR/NTS Conf#: [id number] [facility]#: [id number]
[2018-09-09] MEDS: MUPIROCIN 2% 22 GM OINT TOP SCH (21:04)
[2018-09-10 02:00] VITALS: BP 119/70; PULSE 70; RESP 18
[2018-09-10] MEDS: HYDROmorphONE 1 MG/ML SYG IV PRN ×7 (02:04→23:46)
[2018-09-10 08:12] VITALS: BP 141/81; PULSE 64; RESP 18
[2018-09-10] MEDS: MUPIROCIN 2% 22 GM OINT TOP SCH ×2 (08:49→20:41)
[2018-09-10] MEDS: CEFEPIME 1GM/50 ML (PMX) 50 ML IVPB SCH (08:49)
[2018-09-10] MEDS: VANCOMYCIN 750 MG (PMX) 250 ML IVPB SCH ×2 (09:40→20:32)
[2018-09-10] MEDS: RIFAMPIN 300 MG CAP PO SCH (13:11)
[2018-09-10 14:00] VITALS: BP 130/80; PULSE 68; RESP 18
--- NOTE | 2018-09-10 14:16 | PN ---
Date/Time of Note Date/Time of Note DATE: 09/10/18 TIME: 14:12 Assessment/Plan VTE Prophylaxis Risk score (from Nsg)>0 risk: 2 SCD applied (from Ns): No SCD contraindicated: other Pharmacological prophylaxis: NA/contraindicated Pharm contraindication: low risk/ambulating Lines/Catheters IV Catheter Type (from Nrsg): Peripheral IV Assessment/Plan Hospital Course SUBJECTIVE: Patient with improved pain status.Wound continues to drain.Improved swelling/induration OBJECTIVE: Vital signs-see below PHYSICAL EXAM: Constitutional: Adequately built,not in acute distress. HEENT: Head atraumatic and normocephalic. Eyes: Extraocular muscles intact. Anicteric sclerae. Pupils equal bilaterally, reactive to light. NECK: Supple without lymph node. CHEST: Clear and good breath sounds equally. No wheezing. No rhonchi. HEART: S1, S2. Regular rate and rhythm. ABDOMEN: Soft/non tender with no rebound tenderness. Bowel sounds were present. EXTREMITIES: No cyanosis, clubbing or edema. NEUROLOGIC: Alert and oriented x3. No focal deficit. No sensory deficit. PSYCHOSOCIAL: No signs of depression. INTEGUMENTARY: Induration/erythema/draining pus from right lateral chest wall cellulitis-improving.. ASSESSMENT AND PLAN:48-year-old female with a history of right breast carcinoma, on chemotherapy, admitted with right lateral chest wall cellulitis with increasing right breast size... Right lateral chest wall cellulitis -wound opened up-cellulitis improving. -WC-MRSA=>DC cefepine. cont.Vanco -cont. 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 Cultures MRSA. Continue IV antimicrobials. Consider dc on doxyx 10days in AM. Patient was seen in collaboration with Dr. Fountain Result Diagram: 09/10/18 0457 09/10/18 0454 Results 24hrs Laboratory Tests Test 09/09/18 20:24 09/10/18 04:54 09/10/18 04:55 Vancomycin Level Trough 10.5 Sodium Level 141 Potassium Level 3.8 Chloride Level 103 Carbon Dioxide Level 31 Anion Gap 7 Blood Urea Nitrogen 15 Creatinine 0.74 Est Glomerular Filtrat Rate mL/min > 60 Glucose Level 116 Calcium Level 9.5 White Blood Count 8.9 Red Blood Count 3.90 L Hemoglobin 11.7 L Hematocrit 37.5 Mean Corpuscular Volume 96.2 Mean Corpuscular Hemoglobin 30.0 Mean Corpuscular Hemoglobin Concent 31.2 L Red Cell Distribution Width 15.9 H Platelet Count 357 Mean Platelet Volume 10.1 Immature Granulocytes % 0.500 H Neutrophils % 72.8 Lymphocytes % 18.1 Monocytes % 6.8 Eosinophils % 1.2 Basophils % 0.6 Nucleated Red Blood Cells % 0.0 Immature Granulocytes # 0.040 H Neutrophils # 6.5 Lymphocytes # 1.6 Monocytes # 0.6 Eosinophils # 0.1 Basophils # 0.1 Nucleated Red Blood Cells # 0.0 Exam/Review of Systems Exam Vitals Vital Signs Date Temp Pulse Resp B/P (MAP) Pulse Ox O2 O2 Flow FiO2 Time Delivery Rate 09/10/18 98.4 64 18 141/81 96 Room Air 08:12 (101) Intake and Output 09/09/18 09/09/18 09/10/18 1515:00 23:00 07:00 IntakeIntake Total 860 ml 320 ml 1300 ml OutputOutput Total 700 ml BalanceBalance 160 ml 320 ml 1300 ml Results Results 24hrs Laboratory Tests Test 09/09/18 20:24 09/10/18 04:54 09/10/18 04:55 Vancomycin Level Trough 10.5 Sodium Level 141 Potassium Level 3.8 Chloride Level 103 Carbon Dioxide Level 31 Anion Gap 7 Blood Urea Nitrogen 15 Creatinine 0.74 Est Glomerular Filtrat Rate mL/min > 60 Glucose Level 116 Calcium Level 9.5 White Blood Count 8.9 Red Blood Count 3.90 L Hemoglobin 11.7 L Hematocrit 37.5 Mean Corpuscular Volume 96.2 Mean Corpuscular Hemoglobin 30.0 Mean Corpuscular Hemoglobin Concent 31.2 L Red Cell Distribution Width 15.9 H Platelet Count 357 Mean Platelet Volume 10.1 Immature Granulocytes % 0.500 H Neutrophils % 72.8 Lymphocytes % 18.1 Monocytes % 6.8 Eosinophils % 1.2 Basophils % 0.6 Nucleated Red Blood Cells % 0.0 Immature Granulocytes # 0.040 H Neutrophils # 6.5 Lymphocytes # 1.6 Monocytes # 0.6 Eosinophils # 0.1 Basophils # 0.1 Nucleated Red Blood Cells # 0.0 Medications Medication Current Medications IV Flush (NS 3 ml) 3 ml PER PROTOCOL IV ; Start 09/08/18 at 07:30 Ondansetron HCl (Zofran Inj) 4 mg Q6H PRN IV NAUSEA/VOMITING; Start 09/08/18 at 07:30 Acetaminophen (Tylenol Tab) 650 mg Q6H PRN PO .PAIN 1-3 OR TEMP; Start 09/08/18 at 07:30 Acetaminophen/ Hydrocodone Bitart ([place] (5/325)) 1 tab Q6H PRN PO .MOD PAIN 4- 6; Start 09/08/18 at 07:30 Acetaminophen/ Hydrocodone Bitart ([place] (5/325)) 2 tab Q6H PRN PO .SEVERE PAIN 7-10; Start 09/08/18 at 07:30 Vancomycin HCl (Vanco Iv Per Pharmacy) VANCOMYCIN PER PHARMACY PER PROTOCOL XX ; Start 09/09/18 at 09:00 Vancomycin/Sodium Chloride 250 ml @ 125 mls/hr Q12H IVPB Last administered on 09/10/18at 09:40; Admin Dose 125 MLS/HR; Start 09/08/18 at 21:30 Hydromorphone HCl (Dilaudid) 1 mg Q3H PRN IV SEVERE PAIN LEVEL 7-10 Last administered on 09/10/18at 12:44; Admin Dose 1 MG; Start 09/08/18 at 09:00 Mupirocin (Bactroban) 1 applic BID TOP Last administered on 09/10/18at 08:49; Admin Dose 1 APPLIC; Start 09/09/18 at 21:00 Alprazolam (Xanax) 0.5 mg Q12H PRN PO ANXIETY; Start 09/09/18 at 14:00 Rifampin (Rifampin) 600 mg DAILY PO Last administered on 09/10/18at 13:11; Admin Dose 600 MG; Start 09/10/18 at 13:00 CATALINA MARTE NP Sep 10, 2018 14:16
--- NOTE | 2018-09-10 15:28 | CONS ---
Assessment/Plan Assessment/Plan Hospital Course (Demo Recall) No events, awake, looks comfortable, no fevers, has Kpad on the left Microbiology blood cultures negative the culture from the back wound growing staph aureus Physical examination well-developed ill-appearing middle-aged woman who is in no distress. Head atraumatic normocephalic neck is supple chest rise symmetrical breath sounds diminished bases heart S1-S2 abdomen soft bowel sounds present extremities without cyanosis Assessment: 1. Right lateral chest wall cellulitis w self drained abscess 2. Carcinoma of the breast 3. History of methamphetamine abuse 4. Left chest Port-A-Cath Plan: Stable, continue abx, Kpad, f/u oncology rec-s, anticipate dc on oral Doxy and Rifampin Consultation Date/Type/Reason Admit Date/Time Sep 08, 2018 at 05:35 Initial Consult Date Type of Consult id Date/Time of Note DATE: 09/10/18 TIME: 15:25 Exam/Review of Systems Exam Vitals Vital Signs Date Temp Pulse Resp B/P (MAP) Pulse Ox O2 O2 Flow FiO2 Time Delivery Rate 09/10/18 98.0 68 18 130/80 94 Room Air 14:00 (97) Intake and Output 09/09/18 09/09/18 09/10/18 1515:00 23:00 07:00 IntakeIntake Total 860 ml 320 ml 1300 ml OutputOutput Total 700 ml BalanceBalance 160 ml 320 ml 1300 ml Results Result Diagram: 09/10/18 0455 09/10/18 0454 Results 24hrs Laboratory Tests Test 09/09/18 20:24 09/10/18 04:54 09/10/18 04:55 Vancomycin Level Trough 10.5 Sodium Level 141 Potassium Level 3.8 Chloride Level 103 Carbon Dioxide Level 31 Anion Gap 7 Blood Urea Nitrogen 15 Creatinine 0.74 Est Glomerular Filtrat Rate mL/min > 60 Glucose Level 116 Calcium Level 9.5 White Blood Count 8.9 Red Blood Count 3.90 L Hemoglobin 11.7 L Hematocrit 37.5 Mean Corpuscular Volume 96.2 Mean Corpuscular Hemoglobin 30.0 Mean Corpuscular Hemoglobin Concent 31.2 L Red Cell Distribution Width 15.9 H Platelet Count 357 Mean Platelet Volume 10.1 Immature Granulocytes % 0.500 H Neutrophils % 72.8 Lymphocytes % 18.1 Monocytes % 6.8 Eosinophils % 1.2 Basophils % 0.6 Nucleated Red Blood Cells % 0.0 Immature Granulocytes # 0.040 H Neutrophils # 6.5 Lymphocytes # 1.6 Monocytes # 0.6 Eosinophils # 0.1 Basophils # 0.1 Nucleated Red Blood Cells # 0.0 Medications Medication Current Medications IV Flush (NS 3 ml) 3 ml PER PROTOCOL IV ; Start 09/08/18 at 07:30 Ondansetron HCl (Zofran Inj) 4 mg Q6H PRN IV NAUSEA/VOMITING; Start 09/08/18 at 07:30 Acetaminophen (Tylenol Tab) 650 mg Q6H PRN PO .PAIN 1-3 OR TEMP; Start 09/08/18 at 07:30 Acetaminophen/ Hydrocodone Bitart ([place] (5/325)) 1 tab Q6H PRN PO .MOD PAIN 4- 6; Start 09/08/18 at 07:30 Acetaminophen/ Hydrocodone Bitart ([place] (5/325)) 2 tab Q6H PRN PO .SEVERE PAIN 7-10; Start 09/08/18 at 07:30 Vancomycin HCl (Vanco Iv Per Pharmacy) VANCOMYCIN PER PHARMACY PER PROTOCOL XX ; Start 09/09/18 at 09:00 Vancomycin/Sodium Chloride 250 ml @ 125 mls/hr Q12H IVPB Last administered on 09/10/18at 09:40; Admin Dose 125 MLS/HR; Start 09/08/18 at 21:30 Hydromorphone HCl (Dilaudid) 1 mg Q3H PRN IV SEVERE PAIN LEVEL 7-10 Last administered on 09/10/18at 12:44; Admin Dose 1 MG; Start 09/08/18 at 09:00 Mupirocin (Bactroban) 1 applic BID TOP Last administered on 09/10/18at 08:49; Admin Dose 1 APPLIC; Start 09/09/18 at 21:00 Alprazolam (Xanax) 0.5 mg Q12H PRN PO ANXIETY; Start 09/09/18 at 14:00 Rifampin (Rifampin) 600 mg DAILY PO Last administered on 09/10/18at 13:11; Admin Dose 600 MG; Start 09/10/18 at 13:00 JORGE FONTAINE NP Sep 10, 2018 15:28
--- NOTE | 2018-09-10 18:32 | PN ---
DATE: 09/10/2018 SUBJECTIVE: The patient states that she is feeling better, less flank pain, is able to move right ar m with less pain and greater range of motion. She has not had shaking chills. OBJECTIVE: GENERAL: The patient is a well-developed, well-nourished female in no acute distress. VITAL SIGNS: Temperature 98, pulse 68 per minute and regular, respirations 18, blood pressure 130/80 and pulse oximetry 94% on room air. SKIN No ecchymosis, no petechiae or rashes. The right flank lesion is covered with a dressing. There are multiple tattoos. HEENT: Normocephalic. No evidence of trauma. Pupils equal, round, react to light and accommodation . Sclerae are nonicteric. Oral mucosa is moist without lesions. Tongue is well papillated. There is no gingival hyperplasia. The patient has alopecia. NECK: Supple. No jugular venous distention or thyroid enlargement. No carotid bruits. CHEST: Clear to auscultation and percussion. No rhonchi, wheezes, rales or rubs. There is a port i n the left anterior chest wall, which has been accessed. HEART: Regular sinus rhythm, no S3, S4 or murmurs. BREASTS: Left breast without masses, skin retraction, nipple inversion. Right breast larger than le ft. There is a large mass encompassing the entire lateral aspect of the right breast. ABDOMEN: Mildly obese, but soft. There are no masses or ascites. Bowel sounds are active. EXTREMITIES: Good range of motion, no clubbing, edema or cyanosis. Right upper extremity is larger than left. NEUROLOGIC: Normal. As previously noted, the patient's infection is Staph aureus, actually is methicillin-resistant. Sen sitive to doxycycline, rifampin and vancomycin. White count 8900, hemoglobin 11.7, hematocrit 37.5 and platelet count 357,000. Sodium 141, potassium 3.8, calcium 9.5. ASSESSMENT: 1. Locally advanced carcinoma of the right breast. 2. Chest wall abscess with methicillin-resistant Staphylococcus aureus. DISCUSSION: The patient likely go home after another day of IV vancomycin. He will be discharged enrique abebe on rifampin and doxycycline. We will follow up with Dr. Maher. Dictated By: NYDIA DUNCAN MD SR/NTS Conf#: [id number] [facility]#: [id number] CC: POLI FIGUEROA MD;*EndCC*
[2018-09-10 19:15] VITALS: BP 130/82; PULSE 73; RESP 18
[2018-09-10] MEDS: DIPHENHYDRAMINE 25 MG CAP PO PRN (20:32)
[2018-09-11 02:00] VITALS: BP 116/67; PULSE 61; RESP 18
[2018-09-11] MEDS: HYDROmorphONE 1 MG/ML SYG IV PRN ×6 (02:47→20:32)
[2018-09-11 07:23] VITALS: BP 112/64; PULSE 59; RESP 18
[2018-09-11] MEDS: DIPHENHYDRAMINE 25 MG CAP PO PRN ×2 (09:00→16:59)
[2018-09-11] MEDS: RIFAMPIN 300 MG CAP PO SCH (09:00)
[2018-09-11] MEDS: MUPIROCIN 2% 22 GM OINT TOP SCH ×2 (09:01→22:06)
[2018-09-11] MEDS: VANCOMYCIN 750 MG (PMX) 250 ML IVPB SCH ×2 (09:01→21:46)
--- NOTE | 2018-09-11 09:01 | CONS ---
Consult Date/Type/Reason Admit Date/Time Sep 08, 2018 at 05:35 Initial Consult Date Date/Time of Note DATE: 09/11/18 TIME: 08:56 Subjective Pt tearful when describing her current living situation. States that she is currently homeless. Diagnosed with breast cancer a few months ago. Received one round of chemotherapy under the care of Dr. Maher in [place] 2 months ago. Unclear what medications were given. Pt admitted with right flank skin lesion which is likely related to progressive cancer in the right axillary region which became secondarily infected. Grew out MRSA. On Vanco. Wound much smaller. Objective Vitals Vital Signs Date Temp Pulse Resp B/P (MAP) Pulse Ox O2 O2 Flow FiO2 Time Delivery Rate 09/11/18 98.2 59 18 112/64 92 Room Air 07:23 (80) Intake and Output 09/10/18 09/10/18 09/11/18 1515:00 23:00 07:00 IntakeIntake Total 900 ml 250 ml BalanceBalance 900 ml 250 ml Exam NAD/A&Ox3 NCAT PERRLA OP clear Right cervical neck adenopathy Axillary LAD on right palpable Breast exam deferred RRR no m/g/r CTA B Right arm lymphedema Soft nt nd +BS No c/c/no LE edema Right chest wall wound: decreased surrounding erythema with some mild drainage Results/Medications Result Diagram: 09/10/1845409/10/18 0454 Home Meds Active Scripts Acyclovir* (Acyclovir*) 400 Mg Tablet, 400 MG PO BID, #14 TAB Prov:ZAHIRA OLEARY MD 04/26/17 Reported Medications Ibuprofen* (Ibuprofen*) 600 Mg Tablet, 600 MG PO TID TAKE 1 TABLET BY MOUTH THREE TIMES A DAY WITH FOOD 09/08/18 Discontinued Scripts Ondansetron Hcl* (Zofran*) 4 Mg Tablet, 4 MG PO Q6H PRN for NAUSEA AND OR VOMITING, #30 TAB Prov:ZAHIRA OLEARY MD 04/26/17 Hydrocodone Bit-Acetaminophen (Hydrocodone Bit-APAP) 5-325MG Tablet, 1 TAB PO Q4H PRN for PAIN LEVEL 6-10, #30 TAB Prov:ZAHIRA OLEARY MD 04/26/17 Medications Current Medications IV Flush (NS 3 ml) 3 ml PER PROTOCOL IV ; Start 09/08/18 at 07:30 Ondansetron HCl (Zofran Inj) 4 mg Q6H PRN IV NAUSEA/VOMITING; Start 09/08/18 at 07:30 Acetaminophen (Tylenol Tab) 650 mg Q6H PRN PO .PAIN 1-3 OR TEMP; Start 09/08/18 at 07:30 Acetaminophen/ Hydrocodone Bitart ([place] (5/325)) 1 tab Q6H PRN PO .MOD PAIN 4- 6; Start 09/08/18 at 07:30 Acetaminophen/ Hydrocodone Bitart ([place] (5/325)) 2 tab Q6H PRN PO .SEVERE PAIN 7-10; Start 09/08/18 at 07:30 Vancomycin HCl (Vanco Iv Per Pharmacy) VANCOMYCIN PER PHARMACY PER PROTOCOL XX ; Start 09/09/18 at 09:00 Vancomycin/Sodium Chloride 250 ml @ 125 mls/hr Q12H IVPB Last administered on 09/10/18at 20:32; Admin Dose 125 MLS/HR; Start 09/08/18 at 21:30 Hydromorphone HCl (Dilaudid) 1 mg Q3H PRN IV SEVERE PAIN LEVEL 7-10 Last administered on 09/11/18at 05:50; Admin Dose 1 MG; Start 09/08/18 at 09:00 Mupirocin (Bactroban) 1 applic BID TOP Last administered on 09/10/18at 20:41; Admin Dose 1 APPLIC; Start 09/09/18 at 21:00 Alprazolam (Xanax) 0.5 mg Q12H PRN PO ANXIETY; Start 09/09/18 at 14:00 Rifampin (Rifampin) 600 mg DAILY PO Last administered on 09/10/18at 13:11; Admin Dose 600 MG; Start 09/10/18 at 13:00 Diphenhydramine HCl (Benadryl) 25 mg Q6H PRN PO ITCHING Last administered on 09/10/18at 20:32; Admin Dose 25 MG; Start 09/10/18 at 20:00 Assessment/Plan Assessment/Plan (Daily) IMPRESSION: 1. Right breast cancer-metastatic to ipsilateral axilla and supraclavicular region 2. Right chest wall wound-likely related to underlying lymphedema/lympha [id number] Vanco with improvement in surrounding erythema 3. Substance abuse 4. Homeless PLAN 1. Cont Vancomycin and agree with discharge with oral antibiotics (Bactrim/Rifampin or doxycycline) 2. Needs f/u with medical oncology 3. technical services representative input appreciated 4. Pain control EDU CASTILLO Sep 11, 2018 09:01
--- NOTE | 2018-09-11 12:34 | PN ---
Date/Time of Note Date/Time of Note DATE: 09/11/18 TIME: 12:32 Assessment/Plan VTE Prophylaxis Risk score (from Ns)>0 risk: 3 SCD applied (from Ns): No SCD contraindicated: other Pharmacological prophylaxis: NA/contraindicated Pharm contraindication: low risk/ambulating Lines/Catheters [facility] Assessment/Plan Hospital Course SUBJECTIVE: Right chest wall wound continues to drain, cellulitis improving. Patient still with pain requiring IV Dilaudid. OBJECTIVE: Vital signs-see below PHYSICAL EXAM: Constitutional: Adequately built,not in acute distress. HEENT: Head atraumatic and normocephalic. Eyes: Extraocular muscles intact. Anicteric sclerae. Pupils equal bilaterally, reactive to light. NECK: Supple without lymph node. CHEST: Clear and good breath sounds equally. No wheezing. No rhonchi. HEART: S1, S2. Regular rate and rhythm. ABDOMEN: Soft/non tender with no rebound tenderness. Bowel sounds were present. EXTREMITIES: No cyanosis, clubbing or edema. NEUROLOGIC: Alert and oriented x3. No focal deficit. No sensory deficit. PSYCHOSOCIAL: No signs of depression. INTEGUMENTARY: Induration/erythema/draining pus from right lateral chest wall cellulitis-improving.. ASSESSMENT AND PLAN:48-year-old female with a history of right breast carcinoma, on chemotherapy, admitted with right lateral chest wall cellulitis with increasing right breast size... Right lateral chest wall cellulitis -wound opened up-cellulitis improving. -WC-MRSA=> on vancomycin and rifampin. -cont. 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 Cultures MRSA. Continue IV Vanco for another 24 hours and DC planning in a.m. on doxycycline and rifampin. Patient was seen in collaboration with Dr. Salas Result Diagram: 09/10/18 0455 09/10/18 0454 Exam/Review of Systems Exam Vitals Vital Signs Date Temp Pulse Resp B/P (MAP) Pulse Ox O2 O2 Flow FiO2 Time Delivery Rate 09/11/18 98.2 59 18 112/64 92 Room Air 07:23 (80) Intake and Output 09/10/18 09/10/18 09/11/18 1515:00 23:00 07:00 IntakeIntake Total 900 ml 250 ml BalanceBalance 900 ml 250 ml Medications Medication Current Medications IV Flush (NS 3 ml) 3 ml PER PROTOCOL IV ; Start 09/08/18 at 07:30 Ondansetron HCl (Zofran Inj) 4 mg Q6H PRN IV NAUSEA/VOMITING; Start 09/08/18 at 07:30 Acetaminophen (Tylenol Tab) 650 mg Q6H PRN PO .PAIN 1-3 OR TEMP; Start 09/08/18 at 07:30 Acetaminophen/ Hydrocodone Bitart ([place] (5/325)) 1 tab Q6H PRN PO .MOD PAIN 4- 6; Start 09/08/18 at 07:30 Acetaminophen/ Hydrocodone Bitart ([place] (5/325)) 2 tab Q6H PRN PO .SEVERE PAIN 7-10; Start 09/08/18 at 07:30 Vancomycin HCl (Vanco Iv Per Pharmacy) VANCOMYCIN PER PHARMACY PER PROTOCOL XX ; Start 09/09/18 at 09:00 Vancomycin/Sodium Chloride 250 ml @ 125 mls/hr Q12H IVPB Last administered on 09/11/18at 09:01; Admin Dose 125 MLS/HR; Start 09/08/18 at 21:30 Hydromorphone HCl (Dilaudid) 1 mg Q3H PRN IV SEVERE PAIN LEVEL 7-10 Last a dministered on 09/11/18at 09:01; Admin Dose 1 MG; Start 09/08/18 at 09:00 Mupirocin (Bactroban) 1 applic BID TOP Last administered on 09/11/18at 09:01; Admin Dose 1 APPLIC; Start 09/09/18 at 21:00 Alprazolam (Xanax) 0.5 mg Q12H PRN PO ANXIETY; Start 09/09/18 at 14:00 Rifampin (Rifampin) 600 mg DAILY PO Last administered on 09/11/18at 09:00; Admin Dose 600 MG; Start 09/10/18 at 13:00 Diphenhydramine HCl (Benadryl) 25 mg Q6H PRN PO ITCHING Last administered on 09/11/18at 09:00; Admin Dose 25 MG; Start 09/10/18 at 20:00 CATALINA MARTE NP Sep 11, 2018 12:34
[2018-09-11 14:00] VITALS: BP 126/60; PULSE 57; RESP 18
--- NOTE | 2018-09-11 19:30 | CONS ---
Assessment/Plan Assessment/Plan Hospital Course (Demo Recall) ID PROGRESS NOTE CURRENT ABX: DAY # => 09/10/18 0455 09/10/18 0454 24H INTERVAL SUMMARY * Patient is sleeping, s/p Dilaudid pain meds == DC planning in process for home tomorrow w/PO ABX DIAGNOSTIC IMAGING * 09/08/[address]: IMPRESSION:Infiltration of the subcutaneous soft tissues in the inferolateral chest wall at the level of the right seventh and eighth ribs suggestive of cellulitis.Suspected 3 cm right breast mass. Right axillary lymphadenopathy measuring up to 2 cm. MICRO * 09/08/18 BACK WOUND CX: WOUND CULTURE Final Organism 1 METHICILLIN RESISTANT S.AUREUS QUANTITY 3+ . MULTI DRUG RESISTANT ORGANISM MRSA M.I.C. RX --------- --- CEFAZOLIN R CIPROFLOXACIN >=8 R CLINDAMYCIN >=8 R DOXYCYCLINE S ERYTHROMYCIN >=8 R LEVOFLOXACIN 4 R OXACILLIN >=4 R PENICILLIN-G >=0.5 R RIFAMPIN <=0.5 S VANCOMYCIN 1 S TRIMETHOPRIM/SULFAMETHOXAZOLE >=320 R PHYSICAL EXAMINATION: GENERAL: VSS, NAD HEENT: AT, NC, NECK: Supple, CHEST: Rise symmetrical HEART: Pulse RRR ABDOMEN: EXTREMITIES: Warm, dry SKIN: No rash, no diaphoresis ID ASSESSMENT 48 yo F admit with: 1. Right lateral chest wall cellulitis w self drained abscess 2. Carcinoma of the breast 3. History of methamphetamine abuse 4. Left chest Port-A-Cath (-) MRSA Nares ABX ALLERGIES: None to ABX INVASIVES: CURRENT ABX: DAY # =>Vanco IV ID RECOMMENDATIONS/PLAN: 1. May DC when cleared by primary on Doxycycline 100mg po Q12H and Rifampin 600mg po daily x 10 days to OP primary care & breast surgeon f/u. . Consultation Date/Type/Reason Admit Date/Time Sep 08, 2018 at 05:35 Initial Consult Date Date/Time of Note DATE: 09/11/18 TIME: 19:30 Exam/Review of Systems Exam Vitals Vital Signs Date Temp Pulse Resp B/P (MAP) Pulse Ox O2 O2 Flow FiO2 Time Delivery Rate 09/11/18 98.2 57 18 126/60 95 Room Air 14:00 (82) Intake and Output 09/10/18 09/10/18 09/11/18 1515:00 23:00 07:00 IntakeIntake Total 900 ml 250 ml BalanceBalance 900 ml 250 ml Results Result Diagram: 09/10/18 0455 09/10/18 0454 Medications Medication Current Medications IV Flush (NS 3 ml) 3 ml PER PROTOCOL IV ; Start 09/08/18 at 07:30 Ondansetron HCl (Zofran Inj) 4 mg Q6H PRN IV NAUSEA/VOMITING; Start 09/08/18 at 07:30 Acetaminophen (Tylenol Tab) 650 mg Q6H PRN PO .PAIN 1-3 OR TEMP; Start 09/08/18 at 07:30 Acetaminophen/ Hydrocodone Bitart ([place] (5/325)) 1 tab Q6H PRN PO .MOD PAIN 4- 6; Start 09/08/18 at 07:30 Acetaminophen/ Hydrocodone Bitart ([place] (5/325)) 2 tab Q6H PRN PO .SEVERE PAIN 7-10; Start 09/08/18 at 07:30 Vancomycin HCl (Vanco Iv Per Pharmacy) VANCOMYCIN PER PHARMACY PER PROTOCOL XX ; Start 09/09/18 at 09:00 Vancomycin/Sodium Chloride 250 ml @ 125 mls/hr Q12H IVPB Last administered on 09/11/18at 09:01; Admin Dose 125 MLS/HR; Start 09/08/18 at 21:30 Hydromorphone HCl (Dilaudid) 1 mg Q3H PRN IV SEVERE PAIN LEVEL 7-10 Last administered on 09/11/18at 16:59; Admin Dose 1 MG; Start 09/08/18 at 09:00 Mupirocin (Bactroban) 1 applic BID TOP Last administered on 09/11/18at 09:01; Admin Dose 1 APPLIC; Start 09/09/18 at 21:00 Rifampin (Rifampin) 600 mg DAILY PO Last administered on 09/11/18at 09:00; Admin Dose 600 MG; Start 09/10/18 at 13:00 Diphenhydramine HCl (Benadryl) 25 mg Q6H PRN PO ITCHING Last administered on 09/11/18at 16:59; Admin Dose 25 MG; Start 09/10/18 at 20:00 Miscellaneous Information (*Rx Drug Level Order Reminder*) VANCO TR 0830 ONCE XX ; Start 09/12/18 at 08:30; Stop 09/12/18 at 08:31 RACHEL RAMIREZ NP Sep 11, 2018 19:30
[2018-09-11 20:20] VITALS: BP 136/80; PULSE 66; RESP 17
[2018-09-11] MEDS: SENNA TAB PO SCH (21:46)
[2018-09-11] MEDS ORDERED: BISACODYL (EC) 5 MG TAB PO PRN (22:00)
[2018-09-12] MEDS: HYDROmorphONE 1 MG/ML SYG IV PRN ×4 (00:06→09:21)
[2018-09-12 02:11] VITALS: BP 140/66; PULSE 61; RESP 19
[2018-09-12 07:18] VITALS: BP 114/68; PULSE 58; RESP 18
[2018-09-12] MEDS: DIPHENHYDRAMINE 25 MG CAP PO PRN (08:51)
[2018-09-12] MEDS: SENNA TAB PO SCH (08:52)
[2018-09-12] MEDS: RIFAMPIN 300 MG CAP PO SCH (08:52)
[2018-09-12] MEDS: MUPIROCIN 2% 22 GM OINT TOP SCH (09:21)
[2018-09-12] MEDS: VANCOMYCIN 750 MG (PMX) 250 ML IVPB SCH (09:30)
--- NOTE | 2018-09-12 10:14 | PDOCDIS ---
Discharge Instructions CONDITION [id number] Patient Condition: [id number] Stable HOME CARE INSTRUCTIONS: [id number] Diet Instructions: [id number] Regular FOLLOW UP/APPOINTMENTS Follow-up Plan follow-up with ,ocologist in [place] 1-2 days 1.YOU HAVE RECEIVED A MEDICAL TREATMENT AT [facility] AND YOUR CONDITION IS STABLE AND CAN BE FOLLOWED UP OUTPATIENT. FURTHER FOLLOW-UPS CAN WAIT UNTIL YOU ARE SEEN IN YOUR DOCTORS OFFICE WITHIN THE NEXT 1-2 DAYS. IT IS YOUR RESPONSIBILITY TO MAKE AN APPOINTMENT FOR FOLOW-UP CARE. IF YOU HAVE A PRIMARY DOCTOR --you should call your primary doctor in 1-2 days and schedule an appointment IF YOU DO NOT HAVE A PRIMARY DOCTOR YOU CAN CALL OUR PHYSICIAN REFERRAL HOTLINE AT IF YOU CAN NOT AFFORD TO SEE A PHYSICIAN YOU CAN CHOSE FROM THE FOLLOWING [facility] [address] [facility] [address] [facility] [address] [facility] [address] [facility] [address] [facility]. [facility]. [address] [place] [address]. Call 911 or go to the nearest emergency room if experiencing loss of consciousness, dizziness, chest pain, shortness of breath, vomiting/abdominal pain, speech difficulties, motor weakness or any unusual symptoms. 3.Wound care per nursing instruction CATALINA MARTE NP Sep 12, 2018 10:14
--- NOTE | 2018-09-12 11:00 | DS ---
Date/Time of Note Date/Time of Note DATE: 09/12/18 TIME: 10:57 Discharge Summary Admission/Discharge Info Admit Date/Time Sep 08, 2018 at 05:35 Discharge Date/Time Discharge Diagnosis Right lateral chest wall cellulitis,self drained. Stable Right breast carcinoma-Chest CT noted, there is 3 cm right breast mass with right axillary lymphadenopathy measuring up to 2 cm. f/u w/ (oupt onco) Anxiety/depression Meth abuse Patient Condition: Stable Consults dr.dreye drake Procedures 09/09/2018: Breast ultrasound: IMPRESSION: Suspicious right upper outer quadrant right upper inner quadrant masses with right axillary adenopathy. Please correlate with any recent history of breast cancer. 09/08/2018: Soft tissue ultrasound: IMPRESSION: 1. Heterogeneous echogenicity region in the right posterior thoracic soft tissues, which may be related to hematoma versus mild cellulitis. No significant increased Doppler flow or evidence of abscess formation. 09/08/2018: Chest CT IMPRESSION: Infiltration of the subcutaneous soft tissues in the inferolateral chest wall at the level of the right seventh and eighth ribs suggestive of cellulitis. Suspected 3 cm right breast mass. Right axillary lymphadenopathy measuring up to 2 cm. RPTAT: AADD Hospital Course 48-year-old female with a history of right breast carcinoma, on chemotherapy, admitted with right lateral chest wall cellulitis with increasing right breast size... Patient was noted with the right lateral chest wall cellulitis. There was no discrete abscess found and soft tissue ultrasound. Patient was started on broad-spectrum IV antimicrobial with MRSA coverage. Patient's wound started to drain pus self. Cultures grew MRSA sensitive to rifampin and doxycycline. Patient was continued on warm compress 3 times daily to help drain and applied Bactroban ointment. At this time, patient with no fevers, no leukocytosis and cellulitis almost resolved. Patient with no further pain on the area. At this time, patient is medically stable for discharge on outpatient follow-up with rifampin and doxycycline to complete a course. Hospitalization was also noted for worsening swelling on right breast. Patient with a history of right breast cancer and she follows up with an oncologist in [place] . Patient also had oncology evaluation with Dr. Martha Campos in [facility] . There was a 3 cm right breast mass with right axillary lymphadenopathy measuring up to 2 cm. Apparently, patient had delayed chemotherapy due to insurance issues. Patient was recommended to follow-up with her on oncologist in 1 to 2 days which he agreed. She was given records of imaging studies and oncology consultation from [facility] to take to oupt oncologist. At this time, patient is feeling back to baseline. Her labs and vital signs stable. She is pain-free. She will be discharged with aforementioned p.o. antibiotics to complete her course. Approximately 60-minute was spent on coordinating the discharge on this patient. Patient was seen in collaboration with Dr. Salas. Home Meds Active Scripts Mupirocin* (Bactroban*) 2% -22 Gram Oint...g., 1 APPLIC TOP BID, #1 TUBE apply to right lateral chestwall wound Prov:CATALINA MARTE NP 09/12/18 Doxycycline Hyclate* (Doxycycline Hyclate*) 100 Mg Tablet.dr, 100 MG PO BID for 10 Days, #20 TAB Prov:CATALINA MARTE NP 09/12/18 Rifampin* (Rifampin*) 300 Mg Capsule, 600 MG PO DAILY, #7 CAP Prov:CATALINA MARTE NP 09/12/18 Reported Medications Ibuprofen* (Ibuprofen*) 600 Mg Tablet, 600 MG PO TID TAKE 1 TABLET BY MOUTH THREE TIMES A DAY WITH FOOD 09/08/18 Discontinued Scripts Acyclovir* (Acyclovir*) 400 Mg Tablet, 400 MG PO BID, #14 TAB Prov:ZAHIRA OLEARY MD 04/26/17 Ondansetron Hcl* (Zofran*) 4 Mg Tablet, 4 MG PO Q6H PRN for NAUSEA AND OR VOMITING, #30 TAB Prov:ZAHIRA OLEARY MD 04/26/17 Hydrocodone Bit-Acetaminophen (Hydrocodone Bit-APAP) 5-325MG Tablet, 1 TAB PO Q4H PRN for PAIN LEVEL 6-10, #30 TAB Prov:ZAHIRA OLEARY MD 04/26/17 Follow-up Plan follow-up with ,ocologist in [place] 1-2 days 1.YOU HAVE RECEIVED A MEDICAL TREATMENT AT [facility] AND YOUR CONDITION IS STABLE AND CAN BE FOLLOWED UP OUTPATIENT. FURTHER FOLLOW-UPS CAN WAIT UNTIL YOU ARE SEEN IN YOUR DOCTORS OFFICE WITHIN THE NEXT 1-2 DAYS. IT IS YOUR RESPONSIBILITY TO MAKE AN APPOINTMENT FOR FOLOW-UP CARE. IF YOU HAVE A PRIMARY DOCTOR --you should call your primary doctor in 1-2 days and schedule an appointment IF YOU DO NOT HAVE A PRIMARY DOCTOR YOU CAN CALL OUR PHYSICIAN REFERRAL HOTLINE AT IF YOU CAN NOT AFFORD TO SEE A PHYSICIAN YOU CAN CHOSE FROM THE FOLLOWING [facility] CL[facility]ICS [facility] [address] [facility] [address] [facility] [address] [facility] [address] [facility] [address] [facility]. [facility]. [address]. Call 911 or go to the nearest emergency room if experiencing loss of consciousness, dizziness, chest pain, shortness of breath, vomiting/abdominal pain, speech difficulties, motor weakness or any unusual symptoms. 3.Wound care per nursing instruction Primary Care Provider Care Physician No Primary Pending Labs Laboratory Tests Test 09/12/18 09:02 Blood Urea Nitrogen 14 mg/dl (7-20) Creatinine 0.76 mg/dl (0.44-1.00) Vancomycin Level Trough 10.7 ug/ml (10.0-20.0) CATALINA MARTE NP Sep 12, 2018 11:00
== END 2018-09-12 11:55 | disposition home or self-care (01) | DRG 603 ==
LOC: E/R 03:25 → MS3 05:35 → EDBEDREQ 05:39 → MS3 09-09 14:43
PROVIDERS: ADMIT Internal Medicine; ATTEND Internal Medicine
DX: L03.313 Cellulitis of chest wall (principal); C50.911 Malignant neoplasm of unspecified site of right female breast; C79.89 Secondary malignant neoplasm of other specified sites; B95.62 Methicillin resistant Staphylococcus aureus infection as the cause of diseases classified elsewhere; F41.9 Anxiety disorder, unspecified; F32.9 Major depressive disorder, single episode, unspecified; R59.1 Generalized enlarged lymph nodes
CPT/HCPCS: 36415; 71250; 76536; 76642; 80048; 80053; 80202; 80307; 81003; 82378; 82565; 83690; 83735; 84100; 84520; 85025; 86300; 87070; 87081; 96374; 96375; J0692; J1170; J1644; J2405; J2543; J3370; J7030